=== PATIENT | male | born 1975 | race Asian ===

== ENCOUNTER 2017-07-10 14:51 | Outpatient (CLI) | payer BC ==
--- NOTE | 2017-07-10 16:50 | MRI ---
MR OF THE RIGHT KNEE WITHOUT CONTRAST: 07/10/17 INDICATION: Right knee instability after a skiing accident two weeks ago. Recent right knee pain and swelling. FINDINGS: There is complete disruption of the ACL. The PCL is intact. There is a grade II sprain involving the mid substances of the MCL. The LCLC appears intact. There is a small impaction fracture involving the lateral femoral condyle, image 16 of series 6 with associated edema. There is prominent edema involv ing the posterior aspect of the lateral tibial plateau and fibular head consistent with pivot shift c ontusion pattern. Mild contusion involving the medial femoral canal and medial tibial plateau is also present. Extensor mechanism is intact. There is linear increased T2 signal seen within the substance of the medial meniscus. This may be related to focal contusion. No discrete meniscal tear is evident . Lateral meniscus is intact. IMPRESSION: 1. Complete ACL disruption. 2. Pivot shift contusion pattern of the femoral condyles and tibial plateau as well as the proxi mal fibular head. 3. Small subchondral impaction fracture of the lateral femoral condyle. 4. Grade II MCL sprain. 5. Linear increased T2 signal seen within the periphery of the medial meniscus predominantly in the body and posterior horn. This can be related to meniscal vascularity or contusion. This is slight ly bright on the T1 weighted imaging favoring contusion. No discrete meniscal tear is evident. POS: [facility]
== END 2017-07-10 14:52 | disposition home or self-care (01) ==
LOC: SCSMRI 14:51
PROVIDERS: ATTEND Family Medicine
DX: S89.91XA Unspecified injury of right lower leg, initial encounter (principal); S83.104A Unspecified dislocation of right knee, initial encounter; S70.11XA Contusion of right thigh, initial encounter; S72.421A Displaced fracture of lateral condyle of right femur, initial encounter for closed fracture; S83.411A Sprain of medial collateral ligament of right knee, initial encounter; R93.8 Abnormal findings on diagnostic imaging of other specified body structures

== ENCOUNTER 2017-11-20 06:00 | Day surgery (SDC) | payer BC ==
[2017-11-19 09:43] VITALS: BMI 24.0
[2017-11-20] MEDS ORDERED: Midazolam HCl 2 mg/2 ml Vial ONE (06:34)
[2017-11-20] MEDS ORDERED: Fentanyl 100 MCG/2 ML VIAL ONE ×3 (06:34→09:21)
[2017-11-20] MEDS ORDERED: CEFAZOLIN/Water 2 GM/20 ML SYRINGE ONE (07:05)
[2017-11-20] MEDS ORDERED: Ketorolac Tromethamine 30 MG/ML VIAL ONE ×2 (07:17→13:33)
[2017-11-20] MEDS ORDERED: Dexamethasone 20 MG/5 ML VIAL ONE ×2 (07:18→13:33)
[2017-11-20] MEDS ORDERED: traMADol HCl 50 MG TAB PO PRN ×2 (07:50)
[2017-11-20] MEDS ORDERED: Ropivacaine HCl/PF 1,100 MG in Sodium Chloride 0.9% 440 ML NERVE BLCK SCH (07:50)
[2017-11-20] MEDS ORDERED: Ondansetron PF 4 MG/2 ML Vial IVP PRN (07:50)
[2017-11-20] MEDS ORDERED: Ketorolac Tromethamine 30 MG/ML VIAL IVP PRN (07:50)
[2017-11-20] MEDS ORDERED: Fentanyl 100 MCG/2 ML VIAL IV PRN (07:50)
[2017-11-20] MEDS ORDERED: Zolpidem Tartrate 5 MG TAB PO PRN (07:50)
[2017-11-20] MEDS ORDERED: Promethazine HCl 25 MG/ML VIAL IM PRN (07:50)
[2017-11-20] MEDS ORDERED: HYDROcodone/Acetaminophen 5/325 mg Tablet PO PRN ×2 (07:50)
--- NOTE | 2017-11-20 08:26 | HP ---
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 He was initially treated wi th a knee brace and restriction of activities, but has had persistent symptoms despite rest, restrict ion of activities, anti-inflammatory medications, bracing and exercises. He complains of intermitten t pain and sensation of instability. No definite popping. PAST MEDICAL HISTORY: The patient is otherwise in good health. CURRENT MEDICATIONS: He normally takes no routine medications. ALLERGIES: He has no known allergies. FAMILY HISTORY/SOCIAL HISTORY/REVIEW OF SYSTEMS: Otherwise unremarkable. PHYSICAL EXAMINATION: GENERAL: Reveals a healthy male. HEENT: Unremarkable. NECK: Supple. CHEST: Clear. HEART: Regular rate and rhythm. ABDOMEN: Soft, nontender. RECTAL/GENITAL: Deferred. EXTREMITIES: Pertinent findings of the right knee, there is slight puffiness, no definite effusion. There is normal alignment. There is slight tenderness of the medial joint line and medial collatera l ligament. Range of motion is 3 to 125 degrees. There is 1+ Kurtis's, pain with attempted pivot s hift. The knee is stable and extension is 1+, valgus laxity at 30 degrees of flexion and 1+ anterior drawer. Neurovascular exam is intact with palpable distal pulses. LABORATORY AND X-RAY FINDINGS: MRI scan of the right knee reveals complete ACL tear, bone contusions laterally, grade II MCL sprain and increased signals in the periphery of the medial meniscus, but no discrete tear. IMPRESSION: Internal derangement of right knee with anterior cruciate ligament tear, grade 2 MCL tea r, and possible medial meniscal tear. PLAN: Arthroscopic assisted ACL reconstruction, right knee, with patellar tendon graft, possible men iscectomy and/or debridement and shaving. We will continue to treat the MCL injury conservatively. The nature of the surgery, length of recovery, and potential complications such as infection, loss of motion, incomplete relief, neurovascular injury, continued instability, rupture of the graft, fractu re of the patella, thromboembolic phenomena, post-traumatic degenerative arthritis, and need for rain tional treatment or repeat surgery have been discussed in detail.
[2017-11-20] MEDS ORDERED: Bupivacaine/Epinephrine 0.25% 30 ML VIAL ONE (08:32)
[2017-11-20] MEDS ORDERED: Ondansetron PF 4 MG/2 ML Vial ONE ×2 (09:14→13:33)
--- NOTE | 2017-11-20 11:24 | RAD ---
RIGHT KNEE TWO VIEWS: INDICATIONS: Postop ACL repair. FINDINGS: Postop changes are noted. Anterior skin marie. Fluid and gas in the joint space. Radiopaque anch ors in the distal femur and proximal tibia, at the site of the ACL repair. IMPRESSION: There are postoperative changes seen, as described. POS: [facility]
[2017-11-20] MEDS ORDERED: Bupivacaine HCl 0.5%/Epinephrine 1:200,000/PF 30 ml Vial ONE (12:43)
[2017-11-20] MEDS ORDERED: PROPOFOL 200 MG/20 ML VIAL ONE (13:33)
--- NOTE | 2017-11-20 13:39 | OP ---
DATE OF PROCEDURE: 11/20/2017 SURGEON: Curtis Ronquillo M.D. OWNER: JULIAN Dee. ANESTHESIA: General plus adductor canal and sciatic nerve blocks. PREOPERATIVE DIAGNOSIS: Anterior cruciate ligament tear, right knee. POSTOPERATIVE DIAGNOSIS: Anterior cruciate ligament tear, right knee. PROCEDURE: Arthroscopic ACL reconstruction, right knee, with patellar tendon graft. OPERATIVE FINDINGS: Examination under anesthesia revealed a positive Kurtis's and positive pivot sh ift. There was 1+ valgus laxity at 30 degrees of flexion with a definite endpoint. The knee was sta ble to valgus stress and extension. At arthroscopy patellofemoral joint was normal. Medial and late ral menisci were intact. Articular surface was intact. There was complete disruption of the ACL. NARRATIVE REPORT: After satisfactory anesthesia was induced in the supine position, the patient was placed in a leg urias and prepped and draped in routine manner. The right leg was elevated, exsangu inated with an Esmarch bandage, and the tourniquet inflated to 300 mmHg. Longitudinal incision was m elvi from the inferior pole of the patella to the tibial tubercle, carried down to subcutaneous tissue s. Bleeding points controlled with Bovie cautery. Using sharp and blunt dissection, the patellar te ndon was identified. A central third bone patellar tendon bone graft was then harvested using a smal l oscillating saw and sharp dissection. Bone plugs of approximately 11 x 25 mm were obtained on each end and tagged with heavy Ethibond sutures placed through drill holes. While the graft was being pr epared and sized on the back table, I arthroscoped the knee. The arthroscopy was carried out through the same incision used to harvest patellar tendon graft. The Violeta arthroscope was introduced int o the anterolateral portal, probe through an anteromedial portal, and inflow and outflow accomplished through the scope using the Violeta arthroscopy pump. Arthroscopy was carried out and the above fin dings were noted. All findings were documented with the video printer and hard copies were made. Th e stump of the ACL was debrided with use of basket forceps and motorized shaver. Generous notchplast y of the lateral femoral condyle was accomplished with motorized shaver and bur to the [id number] position. A guidepin for the femoral tunnel was then drilled through the anteromedial portal using a ppropriate guide and drilled out the anterolateral aspect of the thigh. It was then over reamed with an 11 mm cannulated reamer. There appeared to be good placement of the tunnel. Heavy Ethibond sutu re was then placed in the eye of the guidepin and the guidepin pulled through the knee and the suture left within the femoral tunnel for later usage as a passing suture. Using the appropriate guide, th e guidepin for the tibial tunnel was placed and then reamed with an 11 mm cannulated reamer. There w as good placement of both tunnels. The suture within the femoral tunnel was then retrieved and pulle d out into the knee joint and then through the tibial tunnel and then this used as a passing suture t o pass the graft, which was then passed through the tibial tunnel into the knee joint and into the fe moral tunnel. Bone plugs were engaged in both tunnels and pulled tight and there appeared to be good placement of the graft and good fit. The femoral bone plug was then fixed with interference screw p laced over a guidepin. The knee was placed into full extension and while holding the graft taut, the tibial bone plug was also fixed with an interference screw placed over a guidepin. Following this, was elimination of the Kurits and pivot shift maneuver and full range of motion. The knee was resco ped, there was good placement of the graft, full range of motion without impingement. The knee was c opiously irrigated through the scope. Ten mL of 0.25% Marcaine with epinephrine was instilled into t he knee joint for hemostasis. Twenty mL of 0.25% Marcaine was injected about the skin. The tibial h arvest site was filled with a small piece of Gelfoam. The patellar harvest site was filled with bone graft obtained from sizing the graft and also from the reamings of the tunnels. The patellar tendon defect was closed with interrupted #2 Vicryl. Subcutaneous tissues closed with interrupted 2-0 Vicr yl, and skin closed with a staple gun. A sterile bulky compressive dressing was applied and tourniqu et deflated after 94 minutes. The foot promptly pinked up. The patient was immobilized in a [facility] n[facility] knee brace. He was taken to recovery room in stable condition. There were no alec arent intraoperative complications. ESTIMATED BLOOD LOSS: Negligible. The patient will be discharged home in satisfactory condition. Instructed on ice, elevation, use of crutches, and home exercise by the Physical Therapy Department. He was given written wound care inst ructions, a prescription for [place] 10 for pain, 90 tablets. He will be checked in my office in 10-14 days or sooner if there any problems prior to that time.
== END 2017-11-20 12:47 | disposition home or self-care (01) ==
LOC: SDC 06:00
PROVIDERS: ATTEND Orthopaedic Surgery
PROC: 0MRN47Z Replacement of Right Knee Bursa and Ligament with Autologous Tissue Substitute, Percutaneous Endoscopic Approach (ICD-10-PCS; principal; 2017-11-20)
DX: S83.511A Sprain of anterior cruciate ligament of right knee, initial encounter (principal); Z79.899 Other long term (current) drug therapy; Y93.23 Activity, snow (alpine) (downhill) skiing, snowboarding, sledding, tobogganing and snow tubing
CPT/HCPCS: C1713; G8978-GP-CI; G8979-GP-CI; G8980-GP-CI; J0670; J1100; J1885; J2250; J2405; J2704; J3010; J7050